=== PATIENT | female | born 1975 | race American Indian/Alaskan Native ===

== ENCOUNTER 2017-08-28 18:27 | Emergency (ER) | payer BC ==
[2017-08-28 18:36] VITALS: RESP 18; BMI 35.3
[2017-08-28] MEDS ORDERED: Tobramycin 0.3% OPHT SOLN OU STA (18:41)
--- NOTE | 2017-08-28 18:45 | ED PDOC ---
Arrival/HPI - General Time Seen by Provider: 08/28/17 18:41 Historian: Patient - History of Present Illness Narrative History of Present Illness (Text): 08/28/17 18:42 42yo female with PMhx of hypertension and Diabetes who present with complaint of right eye pressure pain, redness and purulent discharge since this morning. she denies visual acuity change, trauma, any other complaint. Past Medical History - Provider Review Nursing Documentation Reviewed: Yes Family/Social History - Physician Review Nursing Documentation Reviewed: Yes Family/Social History: Unknown Family HX Allergies/Home Meds Allergies/Adverse Reactions: Allergies No Known Allergies Allergy (Verified 08/28/17 18:41) Review of Systems - Physician Review All systems were reviewed & negative as marked: Yes - Review of Systems Constitutional: Normal Eyes: Eye Pain (right eye) ENT: Normal Respiratory: Normal Cardiovascular: Normal Gastrointestinal: Normal Genitourinary Female: Normal Musculoskeletal: Normal Skin: Normal Neurological: Normal Endocrine: Normal Hemo/Lymphatic: Normal Psychiatric: Normal Physical Exam Vital Signs Reviewed: Yes Vital Signs Temp Pulse Resp BP Pulse Ox 08/28/17 18:35 98.3 F 84 18 122/84 98 Temperature: Afebrile Blood Pressure: Normal Pulse: Regular Respiratory Rate: Normal Appearance: Positive for: Well-Appearing, Non-Toxic, Comfortable Pain Distress: None Mental Status: Positive for: Alert and Oriented X 3 - Systems Exam Head: Present: Atraumatic, Normocephalic Pupils: Present: PERRL Extroacular Muscles: Present: EOMI Conjunctiva: Present: Injected (right eye). No: Icteric (Red) Mouth: Present: Moist Mucous Membranes Neck: Present: Normal Range of Motion Respiratory/Chest: Present: Clear to Auscultation, Good Air Exchange. No: Respiratory Distress, Accessory Muscle Use Cardiovascular: Present: Regular Rate and Rhythm, Normal S1, S2. No: Murmurs Abdomen: Present: Normal Bowel Sounds. No: Tenderness, Distention, Peritoneal Signs Back: Present: Normal Inspection Upper Extremity: Present: Normal Inspection. No: Cyanosis, Edema Lower Extremity: Present: Normal Inspection. No: Edema Neurological: Present: GCS=15, CN II-XII Intact, Speech Normal Skin: Present: Warm, Dry, Normal Color. No: Rashes Psychiatric: Present: Alert, Oriented x 3, Normal Insight, Normal Concentration Disposition/Present on Arrival - Present on Arrival Any Indicators Present on Arrival: No History of DVT/PE: No History of Uncontrolled Diabetes: No Urinary Catheter: No History of Decub. Ulcer: No History Surgical Site Infection Following: None - Disposition Have Diagnosis and Disposition been Completed?: Yes Diagnosis: Conjunctivitis Disposition: HOME/ ROUTINE Disposition Time: 18:45 Patient Plan: Discharge Condition: STABLE Discharge Instructions (ExitCare): Conjunctivitis ([place]) Additional Instructions: Follow up with your doctor/[facility] Watcher Return to ED for any new or worsening symptoms Referrals: Abram Cameron MD [Staff Provider] - Follow up with primary
[2017-08-28 19:01] VITALS: BP 134/87; PULSE 83; TEMP 98.7; O2SAT 100
== END 2017-08-28 19:26 | disposition home or self-care (01) ==
LOC: ED 18:27 → MERGE 18:27 → ED 19:26
DX: H10.9 Unspecified conjunctivitis (principal)

== ENCOUNTER 2018-04-08 20:45 | Emergency (ER) | payer BC ==
[2018-04-08 21:05] VITALS: BMI 33.6
[2018-04-08 21:07] VITALS: TEMP 98
--- NOTE | 2018-04-08 21:18 | ED PDOC ---
Arrival/HPI - General Chief Complaint: Allergic Reaction Time Seen by Provider: 04/08/18 21:14 Historian: Patient - History of Present Illness Narrative History of Present Illness (Text): 04/08/18 21:14 42 f, with hx diabetes and asthma, presents to the ED with chief complaint of generalized itchiness. Patient reports experiencing similiar symptoms in the past. Was formally tested for by magazine keeper. 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 No obvious chemical exposures, no abd pain/cramp, no dyspnea, no wheezing, no throat swelling. Patient was prescribed hydroxyzine at recent medical visit. Patient states she has experienced itching in her legs but not now. Time/Duration: Other (today) Symptom Onset: Gradual Symptom Course: Unchanged Activities at Onset: Light Past Medical History - Provider Review Nursing Documentation Reviewed: Yes - Infectious Disease Hx of Infectious Diseases: None - Cardiac Hx Cardiac Disorders: No - Pulmonary Hx Respiratory Disorders: Yes Hx Asthma: Yes - Neurological Hx Neurological Disorder: No - HEENT Hx HEENT Disorder: No - Renal Hx Renal Disorder: No - Endocrine/Metabolic Hx Endocrine Disorders: No - Hematological/Oncological Hx Blood Disorders: No - Integumentary Hx Dermatological Disorder: No - Musculoskeletal/Rheumatological Hx Musculoskeletal Disorders: No - Gastrointestinal Hx Gastrointestinal Disorders: No - Genitourinary/Gynecological Hx Genitourinary Disorders: No - Psychiatric Hx Psychophysiologic Disorder: No Hx Substance Use: No - Anesthesia Hx Anesthesia: No Hx Anesthesia Reactions: No Hx Malignant Hyperthermia: No Family/Social History - Physician Review Nursing Documentation Reviewed: Yes Family/Social History: No Known Family HX Smoking Status: Never Smoked Hx Alcohol Use: No Hx Substance Use: No Allergies/Home Meds Allergies/Adverse Reactions: Allergies No Known Allergies Allergy (Verified 04/08/18 21:05) Review of Systems - Physician Review All systems were reviewed & negative as marked: Yes - Review of Systems Constitutional: Normal Eyes: Normal ENT: Normal Respiratory: Normal. absent: SOB, Cough Cardiovascular: Normal. absent: Chest Pain Gastrointestinal: Normal. absent: Abdominal Pain, Diarrhea, Nausea, Vomiting Genitourinary Female: Normal. absent: Dysuria, Frequency, Hematuria Musculoskeletal: Normal. absent: Back Pain, Neck Pain Skin: Other (general itchiness) Neurological: Normal Endocrine: Normal Hemo/Lymphatic: Normal Psychiatric: Normal Physical Exam - Physical Exam Narrative Physical Exam (Text): 04/08/18 21:19 Gen: VS reviewed, alert, well developed, well nourished, nontoxic, mild distress Eye: EOMI, PERRL Neck: no JVD, supple, no adenopathy CV: regular rate, regular rhythm, no rubs,no murmur, S1, S2 Pulm: no distress, clear to auscultation, no wheeze, no rhonchi, breath sounds equal, no rales Abd: soft, nontender Ext: no edema Skin: good color, no cyanosis, there is a faint red and itchy rash on the bilateral arms, upper back and upper chest area. Psych: responds appropriately to questions, normal affect Neuro: oriented x3, CN2-12 intact grossly, motor intact, sensation intact Vital Signs Reviewed: Yes Vital Signs Temp Pulse Resp BP Pulse Ox 04/08/18 21:06 98.0 F 73 17 141/92 H 97 Temperature: Afebrile Blood Pressure: Hypertensive Pulse: Regular Respiratory Rate: Normal Appearance: Positive for: Well-Appearing, Non-Toxic, Comfortable Pain Distress: None Mental Status: Positive for: Alert and Oriented X 3 Medical Decision Making ED Course and Treatment: 04/08/18 21:22 Impression: 42 year old female presents to the emergency department complaining of generalized itchiness. Plan: -- Labs -- POC Urine test -- Reassess and disposition Progress Notes: 04/08/18 22:01 mild allergic reaction localized to skin. cmp done to rule out biliary stasis. antihistamines, prednisone avoided in light hx diabetes. patient also informed to take nondrowsy antihistamine for work and she understand hydroxyzine may cause drowsiness. - Scribe Statement The provider has reviewed the documentation as recorded by the Hilarioibarie Randall All medical record entries made by the Scribe were at my direction and personally dictated by me. I have reviewed the chart and agree that the record accurately reflects my personal performance of the history, physical exam, medical decision making, and the department course for this patient. I have also personally directed, reviewed, and agree with the discharge instructions and disposition. Disposition/Present on Arrival - Present on Arrival Any Indicators Present on Arrival: No History of DVT/PE: No History of Uncontrolled Diabetes: No Urinary Catheter: No History of Decub. Ulcer: No History Surgical Site Infection Following: None - Disposition Have Diagnosis and Disposition been Completed?: Yes Diagnosis: Allergic reaction Disposition: HOME/ ROUTINE Disposition Time: 22:02 Patient Plan: Discharge Patient Problems: Current Active Problems Problem Status Onset Allergic reaction Acute Condition: STABLE Discharge Instructions (ExitCare): Contact Dermatitis (DC) Additional Instructions: Follow up with an cyber security specialist. OSMANI MARCOS, thank you for letting us take care of you today. Your provider was Dr. Giovanni Swan and you were treated for ALLERGIC REACTION. The emergency medical care you received today was directed at your acute symptoms. If you were prescribed any medication, please fill it and take as directed. It may take several days for your symptoms to resolve. Return to the Emergency Department if your symptoms worsen, do not improve, or if you have any other problems. Please contact your doctor or call one of the physicians/clinics you have been referred to that are listed on the Patient Visit Information form that is included in your discharge packet. Bring any paperwork you were given at discharge with you along with any medications you are taking to your follow up visit. Our treatment cannot replace ongoing medical care by a primary care provider outside of the emergency department. Thank you for allowing the [facility] team to be part of your care today. If you had an X-Ray or CT scan: A Radiologist will review the ED reading if any change in treatment is needed we will contact you. If you had a blood, urine, or wound culture: It will take several days for the results, if any change in treatment is needed we will contact you. If you had an STI test: It will take 48 hours for the results. Please call after 1 week if you have not heard back. Prescriptions: Albuterol HFA [Ventolin HFA 90 mcg/actuation (8 g)] 1 puff IH Q4H #1 inhaler Hydroxyzine HCl 25 mg PO Q6H 7 Days #28 tablet Forms: [employer] (Arabic)
[2018-04-08 21:53] LABS: ALB/GLOB RATIO 1.3 (1.1-1.8); ALBUMIN 4.3 g/dL (3.0-4.8); ALT/SGPT 21 U/L (7-56); AST/SGOT 25 U/L (14-36); BLOOD UREA NITROGEN 8 mg/dL (7-21); CALCIUM 9.4 mg/dL (8.4-10.5); GFR NON-AFRICAN AMERICAN > 60
[2018-04-08 23:09] VITALS: BP 135/85; PULSE 75; RESP 18; O2SAT 100
== END 2018-04-08 22:07 | disposition home or self-care (01) ==
LOC: ED 20:45
DX: T78.40XA Allergy, unspecified, initial encounter (principal); E11.9 Type 2 diabetes mellitus without complications

== ENCOUNTER 2018-08-01 20:10 | Emergency (ER) | payer BC | END 2018-08-01 23:55 | disposition home or self-care (01) | LOC: ED 20:10 ==